=== PATIENT | female | born 1955 | race Caucasian/White ===

== ENCOUNTER 2024-01-25 04:52 | Day surgery (SDC) | payer OTHER, BC ==
[2024-01-21 11:57] VITALS: BMI 22.4
[2024-01-25] MEDS ORDERED: LIDOCAINE HCL/PF 2% SDV 5ML VIAL ONE (10:55)
[2024-01-25] MEDS ORDERED: MIDAZOLAM HCL 2 MG/2 ML SINGLE DOSE VIAL ONE (10:55)
[2024-01-25] MEDS ORDERED: PROPOFOL 20 ML ONE ×2 (10:55→12:15)
[2024-01-25] MEDS ORDERED: FENTANYL CITRATE/PF 50 MCG/ML VIAL ONE (10:55)
[2024-01-25] MEDS ORDERED: ceFAZolin SODIUM 1 GM VIAL ONE (11:49)
[2024-01-25] MEDS ORDERED: DEXAMETHASONE SOD PHOSPHATE 4 MG/1 ML VIAL ONE ×2 (11:49→12:13)
[2024-01-25] MEDS ORDERED: ePHEDrine SULFATE 50 MG/1 ML AMPULE ONE (11:49)
[2024-01-25] MEDS: ceFAZolin SODIUM 1 GM VIAL IVPB ONE (11:50)
[2024-01-25] MEDS ORDERED: ONDANSETRON 4 MG/2 ML VIAL ONE (12:13)
[2024-01-25] MEDS ORDERED: KETOROLAC TROMETHAMINE 30 MG/1 ML VIAL ONE (12:13)
[2024-01-25] MEDS ORDERED: SUCCINYLCHOLINE CHLORIDE 200 MG/10 ML SYRINGE ONE (12:22)
[2024-01-25] MEDS ORDERED: oxyCODONE HCL 5 MG TABLET PO PRN (12:36)
[2024-01-25] MEDS ORDERED: ACETAMINOPHEN 500 MG TABLET (FP) PO ONE (12:36)
[2024-01-25] MEDS ORDERED: ONDANSETRON 4 MG/2 ML VIAL IVPUSH PRN (12:36)
[2024-01-25] MEDS: LACTATED RINGERS SOLUTION 1,000 ML IV SCH (13:10)
[2024-01-25 13:29] VITALS: BP 130/61; PULSE 60; RESP 20
[2024-01-25 14:14] VITALS: TEMP 97.8
== END 2024-01-25 14:05 | disposition home or self-care (01) ==
LOC: JASU-SURG 04:52
PROVIDERS: ATTEND Obstetrics & Gynecology
PROC: 0UDB8ZX Extraction of Endometrium, Via Natural or Artificial Opening Endoscopic, Diagnostic (ICD-10-PCS; 2024-01-25)
PROC: 0UBC8ZZ Excision of Cervix, Via Natural or Artificial Opening Endoscopic (ICD-10-PCS; principal; 2024-01-25 10:30)
DX: N84.0 Polyp of corpus uteri (principal); M85.00 Fibrous dysplasia (monostotic), unspecified site
CPT/HCPCS: 86850; 86900; 86901; 88305-TC; 94760

== ENCOUNTER 2024-09-05 07:42 | Day surgery (SDC) | payer OTHER, BC ==
[2024-09-02 09:45] VITALS: BMI 22.4
[2024-09-05] MEDS ORDERED: BUPIVACAINE HCL/PF 0.5% (5MG/ML) 10 ML VIAL ONE (08:54)
[2024-09-05] MEDS ORDERED: MIDAZOLAM HCL 2 MG/2 ML SINGLE DOSE VIAL ONE (09:01)
[2024-09-05] MEDS ORDERED: ROCURONIUM BROMIDE 50 MG/5 ML SYRINGE ONE (09:01)
[2024-09-05] MEDS ORDERED: PROPOFOL 20 ML ONE ×2 (09:01→10:43)
[2024-09-05] MEDS: ceFAZolin 2 GRAM PREMIX BAG IVPB ONE ×2 (09:45)
[2024-09-05] MEDS ORDERED: ceFAZolin SODIUM 1 GM VIAL ONE (10:00)
[2024-09-05] MEDS ORDERED: SUCCINYLCHOLINE CHLORIDE 200 MG/10 ML SYRINGE ONE (10:08)
[2024-09-05] MEDS: BUPIVACAINE HCL/PF 0.5% (5MG/ML) 10 ML VIAL IJ ONE ×2 (10:50)
[2024-09-05] MEDS ORDERED: oxyCODONE HCL 5 MG TABLET PO PRN (11:13)
[2024-09-05] MEDS ORDERED: ONDANSETRON 4 MG/2 ML VIAL IVPUSH PRN (11:13)
[2024-09-05 15:19] VITALS: BP 130/74; PULSE 70; RESP 20; TEMP 97.1
== END 2024-09-05 13:45 | disposition home or self-care (01) ==
LOC: JASU-SURG 07:42
PROVIDERS: ATTEND Obstetrics & Gynecology
PROC: 0UT28ZZ Resection of Bilateral Ovaries, Via Natural or Artificial Opening Endoscopic (ICD-10-PCS; 2024-09-05)
PROC: 0UT78ZZ Resection of Bilateral Fallopian Tubes, Via Natural or Artificial Opening Endoscopic (ICD-10-PCS; principal; 2024-09-05 11:30)
DX: D27.1 Benign neoplasm of left ovary (principal); D27.0 Benign neoplasm of right ovary
CPT/HCPCS: 88305-TC; 94010; 94760